=== PATIENT | female | born 1965 | race Caucasian/White ===

== ENCOUNTER → 2016-08-12 | Outpatient (CLI) | payer OTHER ==
--- NOTE | 2016-08-12 17:06 | DX ---
PA and lateral chest. August 12, 2016. Clinical History: Chest pain. Cough. History of renal CA. Comparison Study: March 29, 2015.. Findings: Interstitial thickening is present in the lung bases bilaterally, new from prior exam. This may represent a manifestation of acute interstitial pneumonitis. No airspace consolidation noted. No pleural effusion. Heart size is normal.. Visualized osseous structures appear normal. Impression: Bilateral lower lobe interstitial thickening, possible acute interstitial pneumonitis suc h as viral pneumonia. Drug reaction or atypical pulmonary edema could appear similar..
== END ==
LOC: FIMAGING 16:22
PROVIDERS: ATTEND Internal Medicine Hematology & Oncology
DX: J98.4 Other disorders of lung (principal); Z85.528 Personal history of other malignant neoplasm of kidney

== ENCOUNTER → 2016-08-27 | Outpatient (CLI) | payer OTHER ==
--- NOTE | 2016-08-27 13:32 | DX ---
Chest, PA and Lateral History: Cough and interstitial pneumonia. Comparison: August 12, 2016 and March 29, 2015 Findings: Diffuse interstitial infiltrate has cleared and the lungs are now clear. There is no focal consolidation or infiltrate. Heart size and pulmonary vascularity are normal. There is no adenopathy or mass lesion. There is no pleural effusion or pneumothorax. Bones are unremarkable for age. Impression: Resolved pneumonitis.
== END ==
LOC: FLAB 11:57 → EDSTATUS 11:57 → FIMAGING 11:58
PROVIDERS: ATTEND Internal Medicine Hematology & Oncology
DX: R05 Cough (principal)

== ENCOUNTER → 2016-10-01 | Outpatient (CLI) | payer OTHER ==
[~2016-10-01] MED LIST: GADOBUTROL 10 ML VIAL IVP ONE
== END ==
LOC: FIMAGING 14:12
PROVIDERS: ATTEND Nurse Practitioner
DX: C79.89 Secondary malignant neoplasm of other specified sites (principal); Z85.528 Personal history of other malignant neoplasm of kidney; M51.36 Other intervertebral disc degeneration, lumbar region
CPT/HCPCS: A9585

== ENCOUNTER → 2016-12-16 | Outpatient (CLI) | payer OTHER | LOC: FIMAGING 15:39 | PROVIDERS: ATTEND Internal Medicine Hematology & Oncology | DX: C64.9 Malignant neoplasm of unspecified kidney, except renal pelvis (principal); M60.9 Myositis, unspecified | CPT/HCPCS: A9585 ==

== ENCOUNTER → 2017-03-04 | Outpatient (CLI) | payer OTHER | LOC: FIMAGING 18:35 | PROVIDERS: ATTEND Internal Medicine Hematology & Oncology | DX: Z85.528 Personal history of other malignant neoplasm of kidney (principal); K76.89 Other specified diseases of liver | CPT/HCPCS: A9585 ==

== ENCOUNTER 2017-03-12 11:03 | Outpatient (CLI) | payer OTHER ==
[2017-03-12] MEDS ORDERED: BUPIVACAINE 0.25% 30 ML SDV ONE (13:25)
[2017-03-12] MEDS ORDERED: LIDOCAINE 1% 300 MG/30 ML SDV ONE (13:25)
[2017-03-12] MEDS ORDERED: fentaNYL 100 MCG/2 ML INJ ONE (14:40)
== END 2017-03-12 16:00 | disposition home or self-care (01) ==
LOC: FIMAGING 11:03
PROVIDERS: ATTEND Internal Medicine Hematology & Oncology
PROC: 0KBF3ZX Excision of Right Trunk Muscle, Percutaneous Approach, Diagnostic (ICD-10-PCS; principal; 2017-03-12)
DX: M79.89 Other specified soft tissue disorders (principal)
CPT/HCPCS: J3010

== ENCOUNTER → 2017-05-31 | Outpatient (CLI) | payer OTHER | LOC: FIMAGING 18:29 | PROVIDERS: ATTEND Internal Medicine Hematology & Oncology | DX: K76.89 Other specified diseases of liver (principal); M62.9 Disorder of muscle, unspecified | CPT/HCPCS: A9585 ==

== ENCOUNTER → 2017-07-20 | Outpatient (CLI) | payer OTHER | LOC: FIMAGING 13:39 | PROVIDERS: ATTEND Internal Medicine Hematology & Oncology | DX: M48.061 Spinal stenosis, lumbar region without neurogenic claudication (principal); A48.0 Gas gangrene; M46.96 Unspecified inflammatory spondylopathy, lumbar region; C64.1 Malignant neoplasm of right kidney, except renal pelvis | CPT/HCPCS: A9585 ==

== ENCOUNTER → 2017-09-27 | Outpatient (CLI) | payer OTHER | LOC: CIMAGING 14:51 | PROVIDERS: ATTEND Nurse Practitioner Family | DX: M25.561 Pain in right knee (principal) | CPT/HCPCS: 73562-PO ==

== ENCOUNTER → 2017-10-02 | Outpatient (CLI) | payer OTHER | LOC: FIMAGING 10:38 | PROVIDERS: ATTEND Nurse Practitioner Family | DX: S83.231A Complex tear of medial meniscus, current injury, right knee, initial encounter (principal); M25.461 Effusion, right knee ==

== ENCOUNTER → 2017-12-24 | Outpatient (CLI) | payer OTHER | LOC: FIMAGING 15:40 | PROVIDERS: ATTEND Internal Medicine Hematology & Oncology | DX: K76.9 Liver disease, unspecified (principal); M62.89 Other specified disorders of muscle; Z85.528 Personal history of other malignant neoplasm of kidney; Z90.5 Acquired absence of kidney | CPT/HCPCS: 74183; A9585; 82565-PO ==

== ENCOUNTER → 2018-03-17 | Outpatient (CLI) | payer OTHER | LOC: FIMAGING 15:09 | PROVIDERS: ATTEND Internal Medicine Hematology & Oncology | DX: M60.9 Myositis, unspecified (principal); Z85.528 Personal history of other malignant neoplasm of kidney | CPT/HCPCS: 74183; A9585; 82565-PO ==

== ENCOUNTER → 2018-06-30 | Outpatient (CLI) | payer OTHER | LOC: FIMAGING 11:27 | PROVIDERS: ATTEND Internal Medicine Hematology & Oncology | DX: Z12.31 Encounter for screening mammogram for malignant neoplasm of breast (principal); Z80.3 Family history of malignant neoplasm of breast ==

== ENCOUNTER → 2018-09-14 | Outpatient (CLI) | payer OTHER | LOC: FIMAGING 15:52 | PROVIDERS: ATTEND Family Medicine | DX: C64.1 Malignant neoplasm of right kidney, except renal pelvis (principal); C78.6 Secondary malignant neoplasm of retroperitoneum and peritoneum | CPT/HCPCS: 74183; A9585 ==